=== PATIENT | female | born 1935 | race Caucasian/White ===

== ENCOUNTER 2018-06-27 15:54 | Emergency (ER) | payer MEDICARE, OTHER ==
--- NOTE | 2018-06-27 17:43 | RAD ---
2 VIEWS RIGHT HIP: Date: 06/27/18 HISTORY: Fall, complaining of pain. FINDINGS: AP and frog-leg views of right hip obtained. Two views of the right hip demonstrate no definite evidence of right hip fractures, subluxations, or bony lesions. IMPRESSION: Unremarkable 2 views right hip. POS: [facility]
--- NOTE | 2018-06-27 17:44 | RAD ---
AP PELVIC INLET AND LATERAL VIEWS OF SACRUM AND COCCYX: Date: 06/27/18 HISTORY: Fall. Pain. FINDINGS: Three views of sacrum and coccyx demonstrate no definite evidence of sacral or coccygeal fractures. Multilevel vacuum disc changes seen at L3-4, L4-5, and L5-S1. IMPRESSION: No definite evidence of sacral or coccygeal fractures. POS: [facility]
--- NOTE | 2018-06-27 17:46 | RAD ---
4 VIEWS RIGHT KNEE: Date: 06/27/18 HISTORY: Fall with pain. FINDINGS: AP, lateral, and both oblique views of right knee obtained. Four views of the right knee demonstrate no evidence of right knee fractures, subluxations, or bony l esions. Osteophytes seen posterior to the patella, as well as along the medial and lateral compartmen ts of the right knee. IMPRESSION: Osteoarthritis without evidence of acute right knee abnormality seen. POS: [facility]
--- NOTE | 2018-06-27 17:46 | RAD ---
3 VIEWS LUMBAR SPINE: Date: 06/27/18 HISTORY: Fall. Back pain. FINDINGS: AP, lateral, and coned-down views of lumbar spine obtained. Images demonstrate S-shaped scoliosis of the lumbar spine. Extensive multilevel lumbar vacuum disc changes seen. Extensive osteophytes and changes of spondylosi s seen. Five non-rib bearing lumbar vertebra are seen. No evidence of acute lumbar spine fractures seen. IMPRESSION: Multilevel lumbar disc degenerative changes, vacuum disc changes, and osteophyte formation. POS: [facility]
== END 2018-06-27 18:22 | disposition home or self-care (01) ==
LOC: ERS 15:54
DX: M54.5 Low back pain (principal); M25.561 Pain in right knee; M25.552 Pain in left hip; I10 Essential (primary) hypertension
CPT/HCPCS: 72100; 72220

== ENCOUNTER 2019-03-19 07:29 | Emergency (ER) | payer MEDICARE ==
--- NOTE | 2019-03-19 09:31 | CT ---
CT BRAIN WITHOUT CONTRAST: Date: 03/19/19 HISTORY: Fall out of wheelchair, head injury, laceration to right side of forehead. Dementia. FINDINGS/IMPRESSION: There are no previous exams for comparison. There are changes of cortical atrophy and chronic small vessel ischemic disease. Ventricular size is appropriate and the basilar cisterns are patent. No evidence of acute infarct, hemorrhage, midline shift, or abnormal extra-axial fluid collections ar e seen. The bony calvarium is intact. There is mucosal disease in the paranasal sinuses. There is a s calp contusion in the right frontal region. IMPRESSION: No acute intracranial process. POS: [facility]
--- NOTE | 2019-03-19 09:33 | CT ---
CT CERVICAL SPINE WITH CORONAL AND SAGITTAL REFORMATIONS: Date: 03/19/19 HISTORY: Fall, head injury. Dementia. FINDINGS/IMPRESSION: There is loss of cervical lordosis and straightening of the cervical spine. Multilevel degenerative c hanges are present. No acute fracture, subluxation, or facet malalignment is identified. POS: [facility]
== END 2019-03-19 10:28 | disposition home or self-care (01) ==
LOC: ERS 07:29
DX: S01.81XA Laceration without foreign body of other part of head, initial encounter (principal); F03.90 Unspecified dementia, unspecified severity, without behavioral disturbance, psychotic disturbance, mood disturbance, and anxiety; I10 Essential (primary) hypertension; Z79.899 Other long term (current) drug therapy; W05.0XXA Fall from non-moving wheelchair, initial encounter
CPT/HCPCS: 12013; 70450; 72125